=== PATIENT | male | born 1980 | race Native Hawaiian/Other Pacific Islander ===

== ENCOUNTER 2017-05-05 23:42 | Emergency (ER) | payer BC ==
[~2017-05-05] VITALS: Ht 190.5 cm; Wt 122.5 kg
== END 2017-05-06 01:54 | disposition home or self-care (01) ==
LOC: ED 23:42
DX: S20.211A Contusion of right front wall of thorax, initial encounter (principal); S20.221A Contusion of right back wall of thorax, initial encounter; W01.0XXA Fall on same level from slipping, tripping and stumbling without subsequent striking against object, initial encounter; Y92.098 Other place in other non-institutional residence as the place of occurrence of the external cause
CPT/HCPCS: 36415; 99283; J1885

== ENCOUNTER 2021-05-19 12:52 | Outpatient (CLI) | payer BC | END 2021-05-19 19:13 | disposition home or self-care (01) | LOC: RAD 12:52 | PROVIDERS: ATTEND Nurse Practitioner Family | DX: M79.672 Pain in left foot (principal); M79.671 Pain in right foot; M25.572 Pain in left ankle and joints of left foot; M25.571 Pain in right ankle and joints of right foot; W19.XXXA Unspecified fall, initial encounter ==